=== PATIENT | female | born 1995 | race Caucasian/White ===

== ENCOUNTER 2019-03-08 10:38 | Emergency (ER) | payer BC ==
[~2019-03-08] VITALS: Ht 157.5 cm; Wt 52.2 kg
[2019-03-08 11:16] LABS: ABSOLUTE NEUTROPHILS 3.3 thou/uL (1.4-8.2); BASOPHILS 0.7 % (0.0-2.0); EOSINOPHILS 5.5 % (0.0-3.0); HEMATOCRIT 42.6 % (37.0-47.0); HEMOGLOBIN 14.4 gm/dL (12.0-15.0); MCHC 33.8 g/dL (28.0-37.0); MCV 88.8 fL (80.0-100.0); MONOCYTES 5.1 % (1.0-8.0); PLATELET COUNT 237 thou/uL (150-400); POLYS 53.7 % (36.0-66.0); RDW 12.6 % (10.5-14.5); WBC 6.2 thou/uL (4.0-11.0)
[2019-03-08 11:28] LABS: ANION GAP 12 mmol/L (7-16); BUN 14 mg/dL (7-18); CALCIUM 9.5 mg/dL (8.5-10.1); CHLORIDE 104 mmol/L (98-107); CO2 24 mmol/L (21-32); CREATININE 0.9 mg/dL (0.6-1.0); GLUCOSE 95 mg/dL (74-106); SODIUM 140 mmol/L (136-145)
[2019-03-08 11:37] LABS: TROPONIN-I <0.06 ng/mL (<0.06)
[2019-03-08 11:55] LABS: URINE BILIRUBIN NEGATIVE (Negative); URINE BLOOD TRACE (Negative); URINE CLARITY CLEAR; URINE COLOR YELLOW; URINE GLUCOSE-RANDOM* NEGATIVE (Negative); URINE KETONES NEGATIVE (Negative); URINE LEUKOCYTES-REFLEX NEGATIVE (Negative); URINE NITRITE-REFLEX NEGATIVE (Negative); URINE PROTEIN (DIPSTICK) NEGATIVE (Negative); URINE UROBILINOGEN 0.2 E.U./dl (0.2-1.0)
[2019-03-08 12:16] VITALS: BP 103/61
--- NOTE | 2019-03-08 16:42 | EKG ---
[address] [place] [address] ELECTROCARDIOGRAM REPORT Name: SOFIA MAE Room #: DEP JASSON Silverio#: [id number] ������������������ Admission: 03/08/19 ������������������ Attend Phys: Discharge: 03/08/19 ������������������ Date of : [birth year] Report #: [id number] ����������������������������������������������������������������� [id number] THIS REPORT FOR: //name// [facility] ED Test Date: 2019-03-08 Test Time: 10:31:46 Pat Name: SOFIA MAE Department: Room: Gender: F Lopper: JESSE : 1995 Requested By: Kathy Apodaca Order Number: [id number] MD: Greg Ulloa Measurements Intervals [place] Rate: 87 P: 63 [place]: 150 QRS: 56 QRSD: 75 T: 26 QT: 343 QTc: 413 Interpretive Statements Sinus rhythm No previous ECG available for comparison Electronically Signed On 03-08-2019 16:42:22 CDT by Greg Ulloa [email or web address] ��������������������������������������������� <ELECTRONICALLY SIGNED> ���������������������������������������� By: Greg Ulloa MD ��������������������������������������������� 03/08/19 1642 1031 1031 Greg Ulloa MD /EPI
== END 2019-03-08 12:23 | disposition home or self-care (01) ==
LOC: ER 10:38
PROVIDERS: Nurse Practitioner
DX: R07.89 Other chest pain (principal)